=== PATIENT | male | born 1995 ===

== ENCOUNTER 2020-08-23 05:27 | Emergency (ER) | payer MEDICAID, SELFPAY | END 2020-08-23 05:50 | disposition left against medical advice (07) | PROVIDERS: Emergency Provider Emergency Medicine | DX: J00 Acute nasopharyngitis [common cold] (principal) | CPT/HCPCS: 99281 ==

== ENCOUNTER 2021-09-08 14:55 | Emergency (ER) | payer MEDICAID, SELFPAY ==
[2021-09-08 14:59] VITALS: BP 142/82; PULSE 60; RESP 16; TEMP 36.8; O2SAT 99; BMI 26.6
== END 2021-09-08 17:53 | disposition left against medical advice (07) ==
PROVIDERS: Emergency Provider Emergency Medicine
DX: R11.10 Vomiting, unspecified (principal)
CPT/HCPCS: 99281